=== PATIENT | male | born 1950 | race Caucasian/White ===

== ENCOUNTER 2017-05-18 06:10 | Day surgery (SDC) | payer MEDICARE ==
[~2017-05-18] VITALS: Ht 172.7 cm; Wt 77.3 kg
[2017-05-18] MEDS ORDERED: IOHEXOL 350 MG/ML 100 ML BTL (for Cath Lab) OTHER ONE (06:11)
[2017-05-18] MEDS ORDERED: NS 1000P @30 MLS/HR (KVO) IV SCH (06:30)
[2017-05-18 06:56] VITALS: BP 137/78; PULSE 89; RESP 18; TEMP 97.9; O2SAT 98
[2017-05-18] MEDS ORDERED: NITR0.4S SL (07:01)
[2017-05-18] MEDS ORDERED: METF1000 PO (07:01)
[2017-05-18] MEDS ORDERED: KRIL300C3 (07:01)
[2017-05-18] MEDS ORDERED: LISI10TA3 PO (07:01)
[2017-05-18] MEDS ORDERED: LOVA40TA PO (07:01)
[2017-05-18] MEDS ORDERED: FEXO180T PO (07:01)
[2017-05-18] MEDS ORDERED: GLIP10TA6 PO (07:01)
[2017-05-18] MEDS ORDERED: VITA1000 PO (07:01)
[2017-05-18] MEDS ORDERED: ASPI-516 CHEW (07:01)
[2017-05-18] MEDS ORDERED: EMPA1TAB5 PO (07:01)
[2017-05-18] MEDS ORDERED: MIDAZOLAM HCL 2 MG/2 ML VIAL ONE (08:23)
[2017-05-18] MEDS ORDERED: HEPARIN-NS/PF INJ 1,000 ML ONE (08:23)
--- NOTE | 2017-05-18 09:03 | CATHPROC ---
mii HIS Report Study Information Study Number Admission Scheduled Start Study Start [id number] May 18 2017 6:10AM 05/18/2017 May 18 2017 7:57AM Left Hand Service Cardiac Catheterization Admit Source Facility Department Other [facility] - Audio Tape Librarian Physician and Clinical Staff Initial Albert Irby Fiber Optic Assembly WorkerKatlyn Hager BSN Fiber Optic Assembly Worker Farzaneh Duran,RN Other cathlab, cathlab Recorder Galen Patterson RCIS(BS) Scrub Cristal Flood RT(R) Procedures Performed Procedure Location (Site) Vessel Name Angiogram LV LV Ventricle Coronary Angiograms LCA Left Coronary Coronary Angiograms RCA Right Coronary L Heart Cath Equipment Time Division Human Resources Manager Description Size Mfg Part Number Used/Scraped TRANSDUCER, TRCollegium PharmaceuticalAVE [id number] 07:58 BARRIOS WADDELL * Used W/STOCKCOCK *[id number] *[id number] *[id number] *[id number] 07:58 [employer] PACK, CCL CUSTOM * Used *[id number] 07:58 [employer] SUPPORT, ARTERIAL ADULT 85074 *[id number] Used [id number] 07:58 [employer]oc[employer]ics PACER PEN, SKIN DUAL W/ RULER * Used *[id number] SHEATH, FR6 RADIAL PRELUDE 07:58 [employer] FR 6 [id number] Used EASE 11CM [id number] 07:58 [employer] WIRE, EXCHANGE 260CM 3MMJ 260CM Used *[id number] 07:58 [employer]COMED OMNIPAQUE, 350 MG, 150ML 150ML [id number] Used 08:50 [employer]COMED OMNIPAQUE, 350 MG, 50ML 50ML [id number] Used [id number] 07:58 [employer] Skin Care BLANKET,WARM AIR CCL * Used *[id number] History: Current Medications Medication Dosage/Unit Route Frequency Last Date/Time Taken Statins (any) ASA History: Allergies Allergy Reaction No Known Allergies History: Risk Factors Family History of Hypertension Dyslipidemia Previous KS Previous Heart Failure Premature CAD Yes Yes Yes No No Prior Valve Prior PCI Prior CABG Surgery No No No Cerebrovascular Peripheral Artery Chronic Lung On Dialysis Diabetes Diabetes Therapy Disease Disease Disease Yes No No No Yes Oral History: Symptoms/Diagnosis Selection Items Chest pain History: Stress Tests Stress or Imaging Studies Performed Yes Standard Exercise Stress Test No Stress Echo No Stress Test SPECT Stress Test SPECT Result Stress Test SPECT Ischemia Risk/Extent Yes Positive High Stress Test CMR No Cardiac CTA Coronary Calcium Score No No History: Other Current Smoker Method Quit Packs a Day Years Used Pack Years No Cigarettes 25 Years Ago 1 20 20 Labs Hgb (g/dl) Hct (%) WBC (l/cumm) Platelets (thousands) 11.60-17.00 35.00-51.00 4.00-11.00 150.00-450.00 14.7 44.1 7.3 188 Glucose (mg/dl) BUN (mg/dl) Creatinine (mg/dl) BUN:Creatinine (1:x) 74.00-106.00 7.00-18.00 0.50-1.30 10.00-20.00 146 8 1.0 8 Na (meq/l) K (meq/l) 136.00-145.00 3.50-5.10 143 3.9 INR (PTT:PT) 0.90-1.10 1 CPK-MB (ng/ML) 0.50-3.60 Not Drawn Medication Medication Total Dose (Bolus/Oral) Medication Total Dosage/Unit 1% XYLOCAINE 20 mL VERSED 2 mg Medications (Bolus/Oral) Medication Time Given Dosage/Unit Administered By Reason VERSED 05/18/2017 8:35:33 AM 2 mg Farzaneh Duran 2 mg VERSED given in lab by Farzaneh Duran RN in Left Hand via Peripheral IV. Ordered by Albert Finn. 1% XYLOCAINE 05/18/2017 8:36:37 AM 20 mL Farzaneh Duran 20 mL 1% XYLOCAINE given in lab by Farzaneh Duran RN in Right Groin via Subcutaneous. Ordered by Albert Manning. Medication (Drip) Medication Time Given Dosage/Unit Concentration/Unit Diluent (ml) Solution IV Solutions 05/18/2017 8:17:44 AM 0 mL (IV) 500 NaCl .9 Patient arrived on IV Solutions given by neftali lindsay in Left Hand via Peripheral IV. Pump/Drip F low = 20 ml/hr using NaCl .9. Ordered by Albert Finn. Initial Case Assessment Cardiovascular HR Rhythm NIBP Chest Pain 83 nsr 128/78 0 Edema Present Skin color Skin None Normal Warm Dry Circulatory - Right Pulses Dorsalis Pedis Femoral 1 2 Scale (0,1,2,3,4,d) Circulatory - Left Pulses Dorsalis Pedis Femoral d 2 Scale (0,1,2,3,4,d) Neurological State Oriented to time-place- Alert Moves all extremities person Respiration - General Respiration Rate SpO2 (%) (B/min) 16 97 Final Case Assessment Cardiovascular HR Rhythm NIBP Chest Pain 82 nsr 115/67 0 Edema Present Skin color Skin None Normal Warm Dry Circulatory - Right Pulses Dorsalis Pedis Femoral 1 2 Scale (0,1,2,3,4,d) Circulatory - Left Pulses Dorsalis Pedis Femoral d 2 Scale (0,1,2,3,4,d) Neurological State Oriented to time-place- Alert Moves all extremities person Respiration - General Respiration Rate SpO2 (%) (B/min) 16 97 Chronological Log Time Study Chronological Log 8:16:39 Patient arrived via Bed. 8:16:43 Patient Name, D.O.B, / Armband Verified By R.N. 8:16:49 Consent signed by the physician and the patient and verified by the Audio Tape Librarian staff. 8:16:52 Pre-op and post- op instructions given; patient acknowledges understanding of instructions. 8:16:55 Verbal Stimulation=2 Physical Stimulation=2 Airway=2 Respiration=2 TOTAL=8. (0=absent, 1=li mited, 2=present) 8:17:02 Presedation assessment performed by Audio Tape Librarian RN. 8:17:06 Immediate Presedation assesment performed by physician. 8:17:17 Patient has been NPO for More than 6Hrs. 8:17:21 Skin Breakdown- none per patient 8:17:23 Patient Warmer Placed on the Table. 8:17:26 Severino Prominences Protected 8:17:38 A # 20 IV was noted in the Hand (left). Grade = 0 Patient arrived on IV Solutions given by cathlab, cathlab in Left Hand via Peripheral IV. Pump/ Drip Flow = 20 ml/hr 8:17:44 using NaCl .9. Ordered by Albert Finn. 8:17:48 History and physical on the chart or being dictated. Vitals capture started with the following parameters, Patient=Adult, Interval=5 min, Initial Pr wxfglp=213 mmHg, 8:18:30 Deflation Rate=5 mmHg, Cuff placed on Left Arm 8:19:11 HR=92 bpm, YTFC=975/83 mmhg, SpO2=96.0 %, Resp=14 B/min, Pain=0, Rock=10, Shine=2 8:24:06 HR=86 bpm, CMUS=144/78 mmhg, SpO2=96.0 %, Resp=10 B/min, Pain=0, Rock=10, Shine=2 8:26:08 Reference ECG taken Assessment: Initial Case, HR=83 BPM, Rhythm=nsr, SUZY=330/78 mmhg, Chest Pain=0, Edema=None, Col or=Normal, Skin = Warm, Dry Right Pulses: William Ped=1, Femoral=2 8:26:13 Left Pulses: William Ped=d, Femoral=2 Neurological: State=Alert, Ox3, MANJARREZ Respiration: Resp=16 B/min, SpO2=97 % 8:28:49 Bilateral groins prepped with 2% chlorhexidine, and draped after a 3 minute waiting time. 8:29:05 HR=86 bpm, IDRY=835/75 mmhg, SpO2=96.0 %, Resp=17 B/min, Pain=0, Rock=10, Sihne=2 8:30:39 MD arrived. 8:34:06 HR=83 bpm, KESG=533/73 mmhg, SpO2=95.0 %, Resp=16 B/min, Pain=0, Rock=10, Shine=2 8:35:06 Pressure channel 1 zeroed. 8:35:33 2 mg VERSED given in lab by Farzaneh Duran, RN in Left Hand via Peripheral IV. Ordered by Albert Song. Time Out. Correct patient, correct procedure, correct physician, power injector not loaded with contrast with surgical 8:36:05 team present. Time Out Concurred by MD and individual staff in procedure. 8:36:32 Case Start 20 mL 1% XYLOCAINE given in lab by Farzaneh Duran, RN in Right Groin via Subcutaneous. Ordered by Aakash 8:36:37 Albert. 8:39:07 HR=84 bpm, ACCJ=623/68 mmhg, SpO2=93.0 %, Resp=16 B/min, Pain=0, Rock=10, Shine=2 8:40:55 Access site was Right Femoral Artery. A SHEATH, FR6 RADIAL PRELUDE EASE 11CM FR 6 was advanced into the Fem Art (right) using the Perc utaneous 8:41:07 technique. A JL 4.0 INFINITI CATHETER FR 6 was advanced over a wire. OMNIPAQUE, 350 MG, 150ML 150ML was use d for 8:41:29 injections. Recorded Pressure: Ao, HR=83, Condition=Condition 1 8:43:18 (Aorta) Ao 107/59/79 8:43:30 The LCA was injected and visualized at various angles. OMNIPAQUE, 350 MG, 150ML 150ML used. 8:44:06 HR=77 bpm, PQUR=741/64 mmhg, SpO2=94.0 %, Resp=16 B/min, Pain=0, Rock=10, Shine=2 8:46:18 Catheter was removed A JR 4.0 INFINITI CATHETER FR 6 was advanced over a wire. OMNIPAQUE, 350 MG, 150ML 150ML was use d for 8:46:23 injections. 8:47:18 The RCA was injected and visualized at various angles. OMNIPAQUE, 350 MG, 150ML 150ML used. 8:48:00 Catheter was removed A PIGTAIL STR INFINITI CATHETER FR 6 was advanced over a wire. OMNIPAQUE, 350 MG, 150ML 150ML wa s used for 8:48:18 injections. 8:49:05 HR=80 bpm, NZYN=502/68 mmhg, SpO2=94.0 %, Resp=18 B/min, Pain=0, Rock=10, Shine=2 Recorded Pressure: LV, HR=82, Condition=Condition 1 8:49:27 (Left Ventricle) LV 106/7/20 8:49:43 The LV was injected at 12 cc/sec for a total of 30. OMNIPAQUE, 350 MG, 50ML 50ML used. Recorded Pressure: LV, Ao, HR=80, Condition=Condition 1 8:50:42 (Left Ventricle) LV 103/8/23, (Aorta) Ao 99/51/72 8:51:02 Catheter was removed 8:53:37 Case End 8:54:04 HR=84 bpm, AUQL=592/67 mmhg, SpO2=95.0 %, Resp=18 B/min, Pain=0, Rock=10, Shine=2 Assessment: Final Case, HR=82 BPM, Rhythm=nsr, DDRB=067/67 mmhg, Chest Pain=0, Edema=None, Col or=Normal, Skin = Warm, Dry Right Pulses: William Ped=1, Femoral=2 8:55:19 Left Pulses: William Ped=d, Femoral=2 Neurological: State=Alert, Ox3, MANJARREZ Respiration: Resp=16 B/min, SpO2=97 % 8:55:48 Catheter(s) removed without difficulty 8:55:54 Sheath(s) left in place, will be removed in Holding Area 8:55:57 Sterile dressing applied to site 8:56:04 No case complications noted. 8:56:08 Cine recording checked. 8:56:11 Bedside Report will be given. 8:56:19 Verbal Stimulation=2 Physical Stimulation=2 Airway=2 Respiration=2 TOTAL=8. (0=absent, 1=l imited, 2=present) 8:56:29 A Left Heart Cath was performed. 8:56:38 Vitals capture stopped. 8:57:40 [facility] - Contrast Media Used In Study Contrast Total Opened (mL) Total Used (mL) Total Wasted (mL) Omnipaque 65 65 0 End Study - Maximum Contrast Load Max Contrast Load (mL) 175.5 End Study - Radiation Exposure Fluoro Time (minutes) 1.4 End Study - Patient Disposition Complications Transferred To Interventional Outcome No Audio Tape Librarian Holding No attempt made
[2017-05-18] MEDS ORDERED: ATROPINE SULFATE 1 MG/ML VIAL IV PUSH PRN (09:15)
[2017-05-18] MEDS ORDERED: LIDOCAINE HCL 1% 50 ML VIAL INFIL PRN (09:15)
[2017-05-18] MEDS ORDERED: MISC INFORMATION XX ONE (09:15)
[2017-05-18] MEDS ORDERED: ONDANSETRON HCL 4 MG/2 ML VIAL IV PUSH PRN (09:15)
[2017-05-18] MEDS ORDERED: LORazepam 2 MG/ML VIAL IV PUSH PRN (09:15)
[2017-05-18] MEDS ORDERED: SODIUM CHLOR 0.9% 250 ML INJ 250 ML IV PRN (09:15)
[2017-05-18] MEDS ORDERED: BACITRACIN OINT 0.9 GM PKT TOP ONE (09:15)
--- NOTE | 2017-05-18 09:49 | MA ---
cc: ALBERT FINN MD DATE: 05/18/2017 PROCEDURE: The patient was prepped and draped usual fashion. A 6 sheath was inserted percutaneously in the right femoral artery. Coronary angiography was done with Eris preformed catheters. Left ventriculography was done in right anterior oblique position with pigtail catheter. RESULTS Aortic pressure was 103/50. Left ventricular end-diastolic pressure was 8. CORONARY ANGIOGRAPHY The left main coronary was normal. Anterior descending artery demonstrated a complex stenosis just proximal to the takeoff of the first diagonal branch. This was somewhat hazy in appearance, suggesting the possibility of intraluminal thrombus, appeared to compromise the lumen by approximately 75% and also involved the lumen of the first diagonal branch as well. Distal portion of the artery was free from disease. The first diagonal itself had a 90% stenosis in its midportion. A small second diagonal branch was free from disease. Left circumflex artery arose from left main, gave off a ramus intermedius branch with a high-grade stenosis noted in the midportion of approximately 90%. Circumflex itself then demonstrated a 75% stenosis. The distal portion of the artery trifurcated into three obtuse marginal branches. The third obtuse marginal branch demonstrated a 90% lesion at its takeoff from the circumflex. The right coronary was nondominant. A ostial stenosis was present of approximately 50-60%. Left ventriculography demonstrated a mildly dilated left ventricle. There is anteroapical hypokinesis with overall ejection fraction estimated at 35%. No mitral regurgitation was present. CONCLUSIONS The patient demonstrates coronary disease; it is rather widespread. He would appear to be a candidate for bypass grafting to the distal LAD, circumflex, distal obtuse marginal first diagonal and ramus intermedius branch. Albert Finn MD DLW/DT /8:51 AM /9:06 AM
--- NOTE | 2017-05-18 10:57 | PD.CAR.PN ---
CVT Progress Note Subjective/Hospital Course: sts data discussed with pt RISK SCORES About the STS Risk Calculator Procedure: CAB Only Risk of Mortality: 0.874% Morbidity or Mortality: 9.718% Long Length of Stay: 3.43% Short Length of Stay: 52.458% Permanent Stroke: 0.957% Prolonged Ventilation: 5.787% DSW Infection: 0.346% Renal Failure: 1.896% Reoperation: 3.967% Objective: Vital Signs Date Time Temp Pulse Resp B/P (MAP) Pulse Ox O2 Delivery O2 Flow Rate FiO2 05/18/17 09:44 97 Room Air 05/18/17 06:56 97.9 89 18 137/78 (97) 98 Gloria Zhang May 18, 2017 10:57
[2017-05-18 11:44] LABS: AUTOMATED NEUTROPHIL # 4.9 TH/MM3 (1.8-7.7); BASOPHIL # 0.1 TH/MM3 (0-0.2); BASOPHIL % 0.8 % (0.0-2.0); EOSINOPHIL # 0.1 TH/MM3 (0-0.4); EOSINOPHIL % 1.1 % (0.0-4.0); HEMATOCRIT 42.9 % (39.0-51.0); LYMPH % 28.6 % (9.0-44.0); LYMPHOCYTE # 2.3 TH/MM3 (1.0-4.8); MEAN CELL VOLUME 95.8 FL (80.0-100.0); MEAN CORPUSCULAR HEMOGLOBIN 33.5 PG (27.0-34.0); MEAN PLATELET VOLUME 10.4 FL (7.0-11.0); MONOCYTE # 0.6 TH/MM3 (0-0.9); NEUT % 61.5 % (16.0-70.0); PLATELET COUNT 188 TH/MM3 (150-450); RED BLOOD COUNT 4.48 MIL/MM3 (4.50-5.90); RED CELL DISTRIBUTION WIDTH 12.8 % (11.6-17.2)
[2017-05-18 11:53] LABS: PROTHROMBIN TIME - PATIENT 10.6 SEC (9.8-11.6)
[2017-05-18 11:56] LABS: ALBUMIN 3.4 GM/DL (3.4-5.0); AST (GOT) 24 U/L (15-37); BICARBONATE 23.6 MEQ/L (21.0-32.0); BLOOD UREA NITROGEN 8 MG/DL (7-18); CALCIUM 8.3 MG/DL (8.5-10.1); CHLORIDE 105 MEQ/L (98-107); CREATININE 0.81 MG/DL (0.60-1.30); GLOMERULAR FILTRATION RATE 94 ML/MIN (>89); GLUCOSE,RANDOM 205 MG/DL (74-106); SODIUM (NA) 139 MEQ/L (136-145)
[2017-05-18 11:57] LABS: ALT (GPT) 42 U/L (12-78)
[2017-05-18 11:59] LABS: ALKALINE PHOSPHATASE 70 U/L (45-117); TOTAL BILIRUBIN ADULT 0.4 MG/DL (0.2-1.0); TOTAL PROTEIN 6.9 GM/DL (6.4-8.2)
--- NOTE | 2017-05-18 12:30 | RADRPT ---
EXAM DATE/TIME: 05/18/2017 11:11 [facility] COMPARISON: No previous studies available for comparison. INDICATIONS : Preop cardiac surgery. MEDICAL HISTORY : Hypertension. Diabetes mellitus type 2. Coronary artery disease. SURGICAL HISTORY : Cardiac cath. ENCOUNTER: Initial ACUITY: 1 day PAIN SCORE: 0/10 LOCATION: Bilateral neck PEAK SYSTOLIC VELOCITIES (cm/sec): ICA/CCA RATIO: Right: 1.2 Left: 0.8 ICA: Right: 98 Left: 94 CCA: Right: 81 Left: 112 ECA: Right: 182 Left: 189 VERTEBRAL: Right: 65 antegrade Left: 19 antegrade Elevated flow velocities and ICA/CCA ratios have been found to correlate with increased degrees of vessel stenosis, calculated as percentage of diameter relative to a normal segment of distal ICA/CCA FINDINGS: RIGHT CAROTID: There is mild to moderate atherosclerotic plaquing at the carotid bifurcation. No significant stenosi s is visualized. The waveforms are within normal limits. LEFT CAROTID: There is moderate atherosclerotic plaquing at the carotid bifurcation. No significant stenosis is vis ualized. The waveforms are within normal limits. VERTEBRAL ARTERIES: Antegrade flow is seen in both vertebral arteries. MISCELLANEOUS: None. CONCLUSION: 1. #1. Mild to moderate calcified atherosclerotic plaquing at the right carotid bifurcation. Moderate c alcified plaquing at the left carotid bifurcation. #2. No focal high grade or hemodynamically significant stenosis. Héctor Plascencia MD on May 18, 2017 at 12:26 Board Certified Radiologist. This report was verified electronically.
--- NOTE | 2017-05-18 12:31 | RADRPT ---
EXAM DATE/TIME: 05/18/2017 11:23 [facility] COMPARISON: No previous studies available for comparison. INDICATIONS : Preop cardiac surgery. MEDICAL HISTORY : Hypertension. Diabetes mellitus type 2. Coronary artery disease. SURGICAL HISTORY : Cardiac cath. ENCOUNTER: Initial ACUITY: 1 day PAIN SCORE: 0/10 LOCATION: Bilateral leg. TECHNIQUE: Venous ultrasound of the left and right leg was performed from the inguinal ligament to the proximal calf. Real-time, color Doppler and spectral tracing, compression and augmentation techniques were us ed. FINDINGS: RIGHT LEG: There is normal compressibility of the deep venous system from the inguinal region to the proximal ca lf. No echogenic clot is seen in the lumen of the common femoral, femoral, popliteal, and posterior tibial veins. There is a normal response of the venous system to proximal and distal augmentation an d respiration. LEFT LEG: There is normal compressibility of the deep venous system from the inguinal region to the proximal ca lf. No echogenic clot is seen in the lumen of the common femoral, femoral, popliteal, and posterior tibial veins. There is a normal response of the venous system to proximal and distal augmentation an d respiration. CONCLUSION: Negative exam with no evidence of deep venous thrombosis. Tod Rojas MD on May 18, 2017 at 12:29 Board Certified Radiologist. This report was verified electronically.
--- NOTE | 2017-05-18 12:31 | RADRPT ---
EXAM DATE/TIME: 05/18/2017 11:35 [facility] COMPARISON: No previous studies available for comparison. INDICATIONS : Preop cardiac surgery. MEDICAL HISTORY : Hypertension. Diabetes mellitus type 2. Coronary artery disease. SURGICAL HISTORY : Cardiac cath. ENCOUNTER: Initial ACUITY: 1 day PAIN SCORE: 0/10 LOCATION: Bilateral leg. GREATER SAPHENOUS VEIN THIGH: PROXIMAL: Right 4 mm Left 6 mm MID: Right 2 mm Left 4 mm DISTAL: Right 2 mm Left 3 mm CALF: PROXIMAL: Right 1 mm Left 2 mm MID: Right 2 mm Left 1 mm DISTAL: Right 1 mm Left 1 mm FINDINGS: The venous system of the lower extremities are patent by color Doppler imaging. Measurements of the leg veins (in mm) are listed above. CONCLUSION: Venous mapping study as described. Tod Rojas MD on May 18, 2017 at 12:30 Board Certified Radiologist. This report was verified electronically.
--- NOTE | 2017-05-18 12:53 | MB ---
cc: JO ANN DUVALL DATE OF CONSULTATION: 05/18/2017 DATE OF : 1950 REASON FOR CONSULTATION: 67-year-old patient of Dr. Ridley and Dr. Albert Finn who started having some chest tightness since January more noticeable with exertion. He normally walks five miles a day and then the it would up walking less than a mile and half. He had to stop periodically with mild chest tightness with associated shortness of breath. No diaphoresis. No nausea or vomiting. He underwent exercise stress testing at [facility] which showed 2-[address] depression inferior leads and some lateral leads. Some ST elevation in V1. The ejection fraction on the stress test showed 32%. He had a 2-D echocardiogram which showed some trace mitral regurgitation, trace tricuspid regurgitation. The EF was incorrect. The patient underwent cardiac cath today by Dr. Finn which showed an ejection fraction of 35% proximal a LAD 70% stenosis. The diagonal 90% stenosis, circ was 75%. The OM 90%. The ramus 90%. We were consulted to evaluate for coronary artery bypass grafting. PAST MEDICAL HISTORY: The patient's past medical history on include diabetes mellitus type 2 Essential hypertension. Lhlw-mg-gkhrlcg he wears hearing aids Chronic kidney disease stage II GFR normally 60-89 Diabetic neuropathy Hyperlipidemia Chronic low back pain Prior tobacco abuse. PAST SURGICAL HISTORY: Surgeries include some oral surgery a colonoscopy. ALLERGIES No known allergies MEDICATIONS Home medications include 1. Marce. 2. Nitro p.r.n. 3. Glyicexambia. 4. Lisinopril 10 p.o. daily, 5. Aspirin 81 daily 6. krill oil 7. lovastatin 8. Glipizide 10 mg b.i.d. 9. Vitamin D 10. Metformin 1000 b.i.d. FAMILY HISTORY: Family history of coronary artery disease. Family history of colon cancer history of prostate cancer. REVIEW OF SYSTEMS IN GENERAL: No night sweats, fever, heat and cold intolerance. SKIN: No psoriasis, itching or hives. HEENT: No blurred vision, positive for hearing loss. He does wear bilateral hearing aids. He wears glasses. He has also full dentures on the top partial dentures on the bottom. RESPIRATORY: Positive for shortness of breath with exertion chest. CARDIOVASCULAR SYSTEM: As above in HPI. GASTROINTESTINAL: No diarrhea, vomiting. GENITOURINARY: No burning frequency, urgency CENTRAL NERVOUS SYSTEM: No history of TIA, CVA, seizure disorder. ENDOCRINOLOGY: Positive for diabetes. PHYSICAL EXAMINATION: VITAL SIGNS: On exam blood pressure 130/70, heart rate of 80, temperature max 97.9, O2 sat 97 on room air. IN GENERAL: Patient is awake, alert in no acute distress. HEAD, EYES, EARS, NOSE, AND THROAT: Head is normocephalic, atraumatic. Pupils equal and reactive. Oral mucosa pink, moist. NECK: Supple. No JVD. HEART: Heart sounds S1-S2 regular rate and rhythm. No rubs, murmurs, gallops. LUNGS: Clear to auscultation. No wheezes, rales or rhonchi. ABDOMEN: Soft, nontender. No masses or organomegaly. EXTREMITIES: No cyanosis, clubbing or edema. LABORATORY FINDINGS: Lab work shows sodium of 143, potassium 3.9, BUN 80 with a creatinine of one, hemoglobin 14, hematocrit of 44, white cell count seven, platelet count 188. INR was 1.0. RADIOLOGIC: Chest x-ray just showed some, scoliosis, some calcified granuloma. IMPRESSION This is a very pleasant 67-year-old male with coronary artery disease, multivessel disease. The cardiac films have been evaluated by Dr. Jo Ann Duvall procedures, alternatives and risks have been discussed with the patient and his . He is agreeable to proceed. The date for surgery is planned for May 31 for coronary artery bypass grafting x4 with endoscopic harvesting. DICTATED BY: DENNYS SolomonP-Slava MD LUCAS Whitlock/ /11:03 AM /2:17 PM
--- NOTE | 2017-05-18 15:31 | RADRPT ---
EXAM DATE/TIME: 05/18/2017 15:07 [facility] COMPARISON: No previous studies available for comparison. INDICATIONS : Evaluate for pneumonia, pneumothorax, or communicable diesease. MEDICAL HISTORY : Hypertension. Diabetes mellitus type 2. Coronary artery disease. SURGICAL HISTORY : Cardiac cath. ENCOUNTER: Initial ACUITY: 1 day PAIN SCORE: 0/10 LOCATION: Bilateral chest FINDINGS: PA and lateral views of the chest demonstrate the lungs to be symmetrically aerated without evidence of mass, infiltrate or effusion. The cardiomediastinal contours are unremarkable. Osseous structure s are intact. CONCLUSION: No acute disease. Austin Sinha MD on May 18, 2017 at 15:29 Board Certified Radiologist. This report was verified electronically.
[2017-05-18 16:23] LABS: BILIRUBIN, URINE NEG (NEG); BLOOD, URINE NEG (NEG); GLUCOSE,URINE 1000 mg/dL (NEG); KETONE, URINE TRACE mg/dL (NEG); NITRITE,URINE NEG (NEG); URINE COLOR LIGHT-YELLOW (YELLW/STRAW); URINE LEUKOCYTE ESTERASE NEG (NEG)
[2017-05-18 16:59] LABS: HEMOGLOBIN A1C 7.1 % (4.3-6.0)
--- NOTE | 2017-05-23 09:26 | RSPPFT ---
DATE OF PROCEDURE: 05/18/17 COMMENTS: The forced vital capacity shows a small reduction. The FEV1 is reduced with a normal FEV1/FVC ratio. The FEF 25-75 shows a small reduction. IMPRESSION: This is compatible with mild restrictive lung disease with a small airways obstructive component.
== END 2017-05-18 16:14 | disposition home or self-care (01) ==
LOC: HCAT 06:10 → HDIC 06:10 → HCAT 16:14
PROVIDERS: ATTEND Internal Medicine
DX: I25.10 Atherosclerotic heart disease of native coronary artery without angina pectoris (principal); N18.2 Chronic kidney disease, stage 2 (mild); I12.9 Hypertensive chronic kidney disease with stage 1 through stage 4 chronic kidney disease, or unspecified chronic kidney disease; E11.40 Type 2 diabetes mellitus with diabetic neuropathy, unspecified; E78.5 Hyperlipidemia, unspecified; M54.5 Low back pain; G89.29 Other chronic pain; Z79.84 Long term (current) use of oral hypoglycemic drugs; Z79.82 Long term (current) use of aspirin; Z01.818 Encounter for other preprocedural examination
CPT/HCPCS: 71020; 80053; 81001; 83036; 85025; 85610; 86850; 86900; 86901; 87641; 93458; 93880; 93970; 93998; 94010; 99152; 99153; C1769; C1893; J1644; J2250; Q9967

== ENCOUNTER 2017-06-01 05:34 | Inpatient (IN) | payer MEDICARE ==
[2017-06-01] VITALS (10 sets, daily range): BP systolic 107–134; BP diastolic 49–79; PULSE 77–94; RESP 11–16; TEMP 97.6–98.9; O2SAT 94–98
[~2017-06-01] VITALS: Ht 170.2 cm; Wt 78.3 kg
[~2017-06-01 05:34] MED LIST: ASPI-516 CHEW; EMPA1TAB5 PO; FEXO180T PO; GLIP10TA6 PO; KRIL300C3; LISI10TA3 PO; LOVA40TA PO; METF1000 PO; NITR0.4S SL; VITA1000 PO
[2017-06-01] MEDS ORDERED: CHLORHEXIDINE GLUCONATE 4% SOLN 120 ML BTL TOPICAL SCH (06:15)
[2017-06-01] MEDS ORDERED: LACTATED RINGER'S 1000 ML IV PRN (06:15)
[2017-06-01] MEDS ORDERED: CEFAZOLIN 500 MG in NS IRR BTL 500 ML IRRIGATION SCH (06:15)
[2017-06-01] MEDS ORDERED: SODIUM CHLORID 0.9% 500 ML IV PRN (06:15)
[2017-06-01] MEDS ORDERED: ceFAZolin 2 GM PREMIX 50 ML IV SCH (06:15)
[2017-06-01] MEDS ORDERED: DEXTROSE 50% IN WATER 50 ML VIAL(D50) IV PUSH PRN ×2 (06:15→12:00)
[2017-06-01] MEDS ORDERED: POVIDONE IODINE 5% (ANTISEPSIS KIT) 4 APPLICATIONS EACH NARE PRN (06:15)
[2017-06-01] MEDS ORDERED: METOPROLOL TARTRATE 25 MG TAB PO SCH (06:15)
[2017-06-01] MEDS ORDERED: CHLORHEXIDINE GLUCONATE 2 % 1 PACK (2 CLOTHS) TOPICAL PRN (06:15)
[2017-06-01] MEDS ORDERED: SODIUM CHLORIDE 0.9% FLUSH 10 ML FLUSH IV FLUSH PRN ×3 (06:15→12:00)
[2017-06-01] MEDS ORDERED: INSULIN REGULAR 100 UNITS in NS 100 ML IV PRN (06:15)
[2017-06-01] MEDS ORDERED: HEPARIN SODIUM - SQ 10,000 UNITS/ML VIAL ONE ×2 (06:27)
[2017-06-01] MEDS ORDERED: methylPREDNISolone SOD SUCC 125 MG/2 ML VIAL ONE (06:29)
[2017-06-01] MEDS ORDERED: ceFAZolin 2 GM PREMIX 50 ML ONE (06:29)
[2017-06-01] MEDS ORDERED: VANCOMYCIN HCL 1000 MG VIAL ONE (06:29)
[2017-06-01] MEDS ORDERED: CARDIOPLEGIC IRR 2,000 ML ONE (06:53)
[2017-06-01] MEDS ORDERED: ALBUMIN 25% INJ 50 ML IV ONE (06:53)
[2017-06-01] MEDS ORDERED: HEPARIN SODIUM - IV 10,000 UNITS/10 ML VIAL ONE (06:54)
[2017-06-01] MEDS ORDERED: POTASSIUM CHLORIDE 40 MEQ/20 ML VIAL ONE (06:54)
[2017-06-01] MEDS ORDERED: POTASSIUM CHLORIDE 20 MEQ/10 ML VIAL ONE (06:55)
[2017-06-01] MEDS ORDERED: SODIUM BICARBONATE 8.4% INJ 50 ML ONE (06:55)
[2017-06-01] MEDS ORDERED: MANNITOL INJ 100 ML ONE (06:55)
[2017-06-01] MEDS ORDERED: CALCIUM CHLORIDE 10% SOLN 1 GRAM/10 ML SYR ONE (06:56)
[2017-06-01] MEDS: PAPAVERINE 60 MG-NITROGLYCERIN 100 MCG-DILTIAZEM 100 MG in NS 100 ML IRRIGATION SCH ×8 (09:06→11:56)
[2017-06-01] MEDS ORDERED: DEXMEDETOMIDINE HCL 200 MCG/2 ML VIAL ONE (11:51)
[2017-06-01] MEDS ORDERED: LACTATED RINGER'S 1000 ML INJ 500 ML IV PRN (11:57)
[2017-06-01] MEDS ORDERED: RESP: ALBUTEROL 2.5 MG/IPRATROPIUM 0.5 MG NEB (PRN) NEB (12:00)
[2017-06-01] MEDS ORDERED: LIDOCAINE HCL 1% PF 5 ML SYRINGE OTHER ONE (12:00)
[2017-06-01] MEDS ORDERED: ceFAZolin INJ 1,000 MG VIAL IV ONE (12:00)
[2017-06-01] MEDS ORDERED: ONDANSETRON HCL 4 MG/2 ML VIAL IV PUSH PRN (12:00)
[2017-06-01] MEDS ORDERED: RESP: RACEPINEPHRINE 2.25% 0.5 ML NEB NEB PRN (12:00)
[2017-06-01] MEDS ORDERED: METOPROLOL TARTRATE 5 MG/5 ML VIAL IV PUSH PRN (12:00)
[2017-06-01] MEDS ORDERED: CALCIUM CHLORIDE INJ 1 GM in SODIUM CHLORIDE 0.9% INJ 100 ML IV PRN (12:00)
[2017-06-01] MEDS ORDERED: POTASSIUM CHLORIDE 20 MEQ CONTROLLED RELEASE TAB PO PRN ×2 (12:00)
[2017-06-01] MEDS ORDERED: ACETAMINOPHEN 650 MG SUPP RECTAL PRN (12:00)
[2017-06-01] MEDS ORDERED: VECURONIUM BROMIDE 20 MG VIAL IV ONE (12:00)
[2017-06-01] MEDS ORDERED: ACETAMINOPHEN 325 MG TAB PO PRN (12:00)
[2017-06-01] MEDS ORDERED: ROCURONIUM INJ 50 MG/5 ML SYRINGE IV PUSH ONE (12:00)
[2017-06-01] MEDS ORDERED: DEXMEDETOMIDINE INJ 200 MCG in SODIUM CHLORIDE 0.9% INJ 50 ML IV PRN (12:00)
[2017-06-01] MEDS ORDERED: POTASSIUM CHLOR 20 MEQ PREMIX 100 ML IV PRN ×3 (12:00)
[2017-06-01] MEDS ORDERED: hydrALAZINE HCL 20 MG/ML VIAL IV PUSH PRN (12:00)
[2017-06-01] MEDS ORDERED: CALCIUM CHLORIDE 10% 1 GRAM/10 ML VIAL IV PUSH PRN (12:00)
[2017-06-01] MEDS ORDERED: LACTATED RINGER'S 1000 ML INJ 2,000 ML IV ONE (12:00)
[2017-06-01] MEDS ORDERED: SODIUM BICARBONATE 8.4% SOLN 50 MEQ/50 ML VIAL IV PUSH PRN ×2 (12:00)
[2017-06-01] MEDS ORDERED: PHENYLEPH/NS 1000 MCG/10 ML SYR IV ONE (12:00)
[2017-06-01] MEDS ORDERED: ePHEDrine/NS 25 MG/5 ML SYRINGE IV ONE (12:00)
[2017-06-01] MEDS ORDERED: CLEVIDIPINE INJ 50 ML IV PRN (12:00)
[2017-06-01] MEDS ORDERED: ALBUMIN 5% INJ 250 ML IV PRN (12:00)
[2017-06-01] MEDS: METOCLOPRAMIDE HCL 10 MG/2 ML VIAL IV PUSH SCH ×3 (12:00→21:57)
[2017-06-01] MEDS ORDERED: INSULIN REGULAR (IV INFUSION) 100 UNITS in SODIUM CHLORIDE 0.9% INJ 99 ML IV PRN (12:00)
[2017-06-01] MEDS ORDERED: MAGNESIUM SULFATE INJ 2 GM in SODIUM CHLORIDE 0.9% INJ 100 ML IV PRN ×4 (12:00)
[2017-06-01] MEDS ORDERED: KETOROLAC TROMETHAMINE 30 MG/ML (IVP) VIAL IV PUSH PRN (12:00)
--- NOTE | 2017-06-01 12:02 | PD.CAR.PN ---
CVT Progress Note Subjective/Hospital Course: 67-year-old patient of [facility] and Dr. Albert Finn who started having some chest tightness in January 2017 more noticeable with exertion. He normally walks five miles a day and then the it would up walking less than a mile and half. He had to stop periodically with mild chest tightness with associated shortness of breath, he underwent cardiac stress test which was positive , The ejection fraction on the stress test showed 32%. He also had a 2-D echocardiogram which showed some trace mitral regurgitation, trace tricuspid regurgitation. The patient underwent cardiac cath 05/18 Dr. Finn which showed an ejection fraction of 35% proximal a LAD 70% stenosis. The diagonal 90% stenosis, circ was 75%. The OM 90%. The ramus 90%. PAST MEDICAL HISTORY:diabetes mellitus type 2, Essential hypertension, [place], Chronic kidney disease stage II GFR normally 60-89, Diabetic neuropathy, Hyperlipidemia, Chronic low back pain Objective: Vital Signs Date Time Temp Pulse Resp B/P (MAP) Pulse Ox O2 Delivery O2 Flow Rate FiO2 06/01/17 06:40 98.2 83 16 141/78 (99) 97 (1) Coronary artery disease (2) Diabetes mellitus (3) Chronic kidney disease (4) Hyperlipemia (5) Hypertension Gloria Zhang Jun 01, 2017 12:02
--- NOTE | 2017-06-01 12:08 | HHI.FF ---
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 with documented spasm (2) S/P CABG (coronary artery bypass graft) (3) Coronary artery disease (4) Diabetes mellitus (5) Hyperlipemia (6) Hypertension (7) Chronic kidney disease (8) Angina pectoris Home Health Nursing Order: Signs/symptoms of disease process Diabetic education Medication education-adverse effect Wound care and dressing changes Nursing assessment with vital signs Instructions: Heart and Vascular Surgery patients *Special attention to sternal dressing Mandatory frequency Assess and evaluation, 4 days in a row The next week 3X week 2 times a week for 4 weeks 1 time a week for 5 weeks Schedule Heart and Vascular patients for full 60 day certification period Initial visit Review Open Heart Surgery Discharge Instructions (Sternal precautions, Activity, Elastic hose, Incision care, Driving, Incentive spirometry, Smoking, [place], Work and other) Need Betadine to paint incision Medication reconciliation Importance of follow up care/ check on appointments Make calendar record temperature daily When to call [facility] nurse, review instructions, phone list Incentive Spirometry, demonstration Visit 1- Begin discharge instruction for patient family and/ or caregiver using teach back method- Signs and symptoms of infection Disease characteristics Medicines and side effects Foods and nutrition/ appetite Infection control/ hand washing/ hygiene Visit 2- Continue teaching Discharge instructions- include additional information on smoking cessation , sternal dressing (sternal vac) Visit 3- Continue teaching- Cough and deep breathing, incision monitoring. Choose my plate Visit 4- Continue teaching- Discuss limitations Discuss how they are feeling Discuss progress toward goals Remaining visits- continue teaching and monitoring PREVENA Single Use Negative Wound Therapy System Caregiver Instruction Sheet 1. A Prevena dressing system was applied to the chest incision during surgery , to promote wound healing. It works via a suction device (negative pressure wound therapy) to remove low to moderate levels of exudate (drainage) and infectious materials. We recommend that the device stay in place for up to seven days, from day of surgery. 2. Day of Surgery__06/01/17 Day of Removal ___06/08/17 3. The dressing should only be removed by a health health care coordinator. Please arrange removal of device to coincide with Home Health visit and or with Nursing staff at Rehab 4. If skin reddening or irritation of skin occurs, or excessive drainage, please notify the Cardiovascular Surgeons office at [phone]. 5. Light showering is permissible; however the pump should be disconnected and placed in safe location, where it will not get wet. The dressing should not be exposed to direct spray or submerged in water. No bath tub / shower only. Ensure the end of the tubing attached to the dressing is facing down so that water does not enter the top of the tube. 6. To remove Prevena dressing: press purple button to turn off device / remove the suction. Then disconnect the tubing from the pump. The fixation strips should be stretched away from the skin and the dressing lifted at one corner and peeled back until it has been fully removed. 7. After removal, it is ok to shower daily using liquid dial soap and clean wash cloth, rinse and pat dry, and leave incision open to air dry. For any concerns regarding Prevena dressing, and or wounds, please contact Denita Degroot, patient navigator at [phone] or notify the Cardiovascular Surgeons office at [phone]. Incentive spirometry Q1 hr x 10, while awake, also use acapella device hourly whole awake Sternal Breast Bone Precautions: NO pushing or pulling, ( pt must use sternal pillow to support chest with all activities and with coughing ( takes up to 3 months breast bone to heal ) Daily incision care: ok to shower daily, no tub bath. Wash all incisions with liquid dial soap, clean wash cloth to each site, rinse and pat dry. Observe for any signs of infection, such as drainage which is dark yellow, ardon, green or foul smelling. Immediately report to the surgeon any drainage from the chest incision, or legs, and for any abnormal drainage from the chest tube sites. Notify surgeon if any temp >101.5 degrees F. When specialty dressing removed/ or if you do not have one, continue to shower daily as above, then rinse and pat incision dry and paint with betadine daily x 5 days. Allow steri strips to fall off if you have any. Avoid lotions, creams, salves, oils, etc. for the first month Please see attached forms for additional instructions regarding post Open Heart specialty wound vacuum dressings. GABRIEL or Prevena , Dressing to be removed by Nursing staff on __06/08/[address] Duvall patients , please obtain CBC, BMP, PA & Lat CXR in 2 weeks, results to Dr. Duvall ( prescription will be given) ( ) (Tele: [phone]) , F/U appointment: as per MD instructions: PCP in 2 weeks, CV surgeon 2 weeks, [employer] Consultant 3-4 weeks For any questions regarding incisions/ dressing / meds / post op care or above Symptoms, Tuesday 8am-5pm Heart & Vascular Surgery Office ( Dr. Malave & Dr. Duvall), After Hours / Nights (5pm -8am) Weekends and Holidays Please call [facility] Cardiac [facility] Unit (C[facility]) Charge Nurse I have seen patient Mickey Davis on 06/01/17. My clinical findings support the need for the requested home health care services because: Deconditioned w/ increased weakness I certify that my clinical findings support that this patient is homebound because: Post-op weakness Gloria Zhang Jun 01, 2017 12:08
--- NOTE | 2017-06-01 12:12 | PD.OP ---
cc: Jo Ann Duvall MD; Otf Meneses MD; Albert Finn MD Operative Report Date of Surgery: Jun 01, 2017 Preoperative Diagnosis: (1) Angina pectoris (2) Coronary artery disease Postoperative Diagnosis: Procedure: same Anesthesia: Dr. Reynolds Surgeon: Jo Ann Duvall [employer] Operator(s): CATHY Garber Operation and Findings: The risks, benefits, complications, treatment options, and expected outcomes were discussed with the patient. The possibilities of reaction to medication, pulmonary aspiration, perforation of viscus, bleeding, recurrent infection, the need for additional procedures, failure to diagnose a condition, and creating a complication requiring transfusion or operation were discussed with the patient. The patient concurred with the proposed plan, giving informed consent. The site of surgery properly noted/marked. The patient was taken to Operating Room , identified as Mickey Davis and the procedure verified as CABG, EVH , VERNON. A Time Out was held and the above information confirmed. Standard monitoring lines and Barajas catheter were placed. General anesthesia was induced. The patient was prepped and draped in a sterile fashion. A median sternotomy was performed and electrocautery was used to obtain hemostasis. The left internal mammary artery was procured as a pedicle from the 7th rib to the 1st rib in the usual manner. Simultaneously left greater saphenous vein was procured from the left leg using a minimally invasive endoscopic technique. The vein was prepared for anastomosis and the leg wound was irrigated and closed in 2 layers. The pericardium was opened and a pericardial sling was created using interrupted 0 silk sutures. The patient was heparinized for cardiopulmonary bypass and the distal mammary pedicle was instrumented for anastomosis. The heart was instrumented for cardiopulmonary bypass in the usual manner. Antegrade blood cardioplegia was employed. The patient was placed on cardiopulmonary bypass. An aortic cross-clamp was applied and the heart was arrested using cold blood cardioplegia. Antegrade cardioplegia was administered after he each anastomosis. After adequate arrest, the OM3 was opened with a Mentasta blade and found to be a 1.5 millimeter good target. Saphenous vein was approximated to the OM3 artery using a running 7 0 Prolene suture. The graft was measured for length and orientation and the proximal anastomosis was constructed to the ascending aorta using a running 5 0 Prolene suture after creating an aortotomy with a 5 millimeter punch. The 1st circumflex marginal artery was then opened with a Mentasta blade and found to be a 1.5 millimeter good target. The OM1 artery was intramyocardial. Saphenous vein was approximated to the OM1 artery using a running 7 0 Prolene suture. The graft was measured for length and orientation and was suspended from the pericardium. The LAD was intramyocardial. The distal LAD was opened with a Mentasta blade and found to be a 1.5 millimeter good target. The left internal mammary artery was approximated to the LAD using a running 7 0 Prolene suture. The pedicle was attached to the epicardium using interrupted 5 0 silk suture. The patient was systemically rewarmed and received a hotshot dose of warm blood cardioplegia. The aorta was vented and the proximal anastomosis to the OM1 graft was accomplished using a running 5 0 Prolene suture after creating an aortotomy was a 5 millimeter punch. The cross -clamp was removed and all proximal and distal anastomoses were examined for hemostasis. The patient was weaned from cardiopulmonary bypass. Protamine was given. There was no adverse reaction. Decannulation was carried out without incident. Wound was checked for hemostasis which was obtained using electrocautery. A 36 Kazakh mediastinal and 32 Kazakh left pleural chest tubes were placed and secured to the skin with 0 silk suture. The sternum was closed with stainless steel wire. The fascia was closed with 1. PDS. The subcutaneous tissue was closed using a running 2-0 Vicryl suture. The skin was closed with 4- 0 Monocryl. Sterile dressings were placed. At the end of the operation, all sponge, instruments, and needle counts were correct. The patient was transferred to the CVICU in stable condition. Findings: good distal targets. The first diagonal was not grafted as it was intramyocardial and could not be found. LV function improved to ~45% with revascularization. XC: 62 min CPB: 77 min Drains: mediastinal x 1 pleural x 1 Complications: none Disposition: to CVICU in stable condition Jo Ann Duvall MD Jun 01, 2017 12:12
[2017-06-01] MEDS ORDERED: Post-op Orders (for Pharmacy) OTHER ONE (12:49)
[2017-06-01] MEDS ORDERED: MIDAZOLAM HCL 2 MG/2 ML VIAL ONE (13:01)
[2017-06-01] MEDS ORDERED: fentaNYL CITRATE 1000 MCG/20 ML VIAL ONE (13:01)
[2017-06-01] MEDS: AMIODARONE 200 MG TAB PO SCH ×2 (13:37→21:57)
[2017-06-01] MEDS: ACETAMINOPHEN 1000 MG/100 ML 100 ML IV SCH ×2 (14:15→21:57)
--- NOTE | 2017-06-01 14:15 | RADRPT ---
EXAM DATE/TIME: 06/01/2017 13:01 [facility] COMPARISON: CHEST PA & LAT, May 18, 2017, 15:07. INDICATIONS : Post CABG. MEDICAL HISTORY : Hypertension. Diabetes mellitus type 2. Coronary artery disease. SURGICAL HISTORY : Cardiac cath. ENCOUNTER: Initial ACUITY: 1 day PAIN SCORE: Non-responsive. LOCATION: Bilateral chest FINDINGS: ETT at the level of the clavicles. Right IJ introducer tip in the proximal right atrium. A mediastina l drain and left-sided chest tube in place. No significant pneumothorax. Minimal airspace disease at the left lung base consistent with atelectasis. Cardiomediastinal contours are within normal limits. Remainder of the exam is unchanged. CONCLUSION: 1. Expected immediate postoperative features with tubes and lines, as above. 2. No significant pneumothorax. Teddy Hernandez MD on June 01, 2017 at 14:10 Board Certified Radiologist. This report was verified electronically.
[2017-06-01] MEDS: SODIUM CHLORIDE 0.9% FLUSH 10 ML FLUSH IV FLUSH SCH (21:00)
[2017-06-02] VITALS (10 sets, daily range): BP systolic 110–130; BP diastolic 48–69; PULSE 69–92; RESP 14–16; TEMP 97.7–98.7; O2SAT 95–97
[2017-06-02] MEDS: ACETAMINOPHEN 1000 MG/100 ML 100 ML IV SCH ×2 (03:11→08:34)
[2017-06-02 05:09] LABS: HEMATOCRIT 35.3 % (39.0-51.0); MEAN CELL VOLUME 96.1 FL (80.0-100.0); MEAN CORPUSCULAR HEMOGLOBIN 32.7 PG (27.0-34.0); MEAN PLATELET VOLUME 10.7 FL (7.0-11.0); PLATELET COUNT 141 TH/MM3 (150-450); RED BLOOD COUNT 3.67 MIL/MM3 (4.50-5.90); RED CELL DISTRIBUTION WIDTH 13.4 % (11.6-17.2); WHITE BLOOD COUNT 17.3 TH/MM3 (4.0-11.0)
[2017-06-02 05:25] LABS: BICARBONATE 21.3 MEQ/L (21.0-32.0); CALCIUM 7.3 MG/DL (8.5-10.1); CREATININE 0.83 MG/DL (0.60-1.30); MAGNESIUM 2.2 MG/DL (1.5-2.5)
--- NOTE | 2017-06-02 05:30 | RADRPT ---
EXAM DATE/TIME: 06/02/2017 04:44 [facility] COMPARISON: CHEST SINGLE AP, June 01, 2017, 13:01. INDICATIONS : Post-op CABG MEDICAL HISTORY : Hypertension. Diabetes mellitus type 2. Coronary artery disease SURGICAL HISTORY : Cardiac cath ENCOUNTER: Subsequent ACUITY: 2 days PAIN SCORE: 0/10 LOCATION: Bilateral chest FINDINGS: Examination of the chest demonstrates postoperative findings status post median sternotomy. Support l rochelle and tubes are in satisfactory position. The endotracheal tube has been removed. There is no evid ence of pneumothorax. CONCLUSION: 1. Postsurgical changes as above. There is no evidence of pneumothorax. Albert Toure MD on June 02, 2017 at 5:27 Board Certified Radiologist. This report was verified electronically.
[2017-06-02] MEDS: AMIODARONE 200 MG TAB PO SCH ×3 (05:34→21:36)
[2017-06-02] MEDS: PANTOPRAZOLE SOD 40 MG DELAYED RELEASE TAB PO SCH (05:34)
[2017-06-02 05:42] LABS: CALCIUM-PROTEIN CORRECTED 8.3 MG/DL (8.5-10.1); TOTAL PROTEIN 5.2 GM/DL (6.4-8.2)
[2017-06-02] MEDS: METOCLOPRAMIDE HCL 10 MG/2 ML VIAL IV PUSH SCH (08:33)
[2017-06-02] MEDS ORDERED: GLUCAGON 1 MG/ML VIAL OTHER PRN (09:30)
[2017-06-02] MEDS ORDERED: SOD PHOSPHATE/SOD BIPHOSPHATE (ADULT) ENEMA 133ML RECTAL PRN (09:30)
[2017-06-02] MEDS ORDERED: DEXTROSE 50% IN WATER 50 ML VIAL(D50) IV PUSH PRN (09:30)
[2017-06-02] MEDS ORDERED: PILL SPLITTER OTHER PRN (10:00)
[2017-06-02] MEDS: PRAVASTATIN SOD 40 MG TAB PO SCH (10:05)
[2017-06-02] MEDS: LORATADINE 10 MG TAB PO SCH (10:05)
[2017-06-02] MEDS: ASPIRIN 81 MG CHEW TAB PO SCH (10:05)
[2017-06-02] MEDS: SODIUM CHLORIDE 0.9% FLUSH 10 ML FLUSH IV FLUSH SCH ×2 (10:05→21:37)
[2017-06-02] MEDS: DOCUSATE SODIUM 100 MG CAP PO SCH ×2 (10:31→21:36)
[2017-06-02] MEDS: METOPROLOL TARTRATE 25 MG TAB PO SCH ×2 (10:31→21:35)
[2017-06-02] MEDS: INSULIN ASPART SUPPLEMENTAL SCALE SQ SCH ×4 (10:37→21:52)
--- NOTE | 2017-06-02 10:54 | PD.CAR.PN ---
CVT Progress Note Subjective/Hospital Course: 67-year-old patient of [facility] and Dr. Albert Finn who started having some chest tightness in January 2017 more noticeable with exertion. He normally walks five miles a day and then the it would up walking less than a mile and half. He had to stop periodically with mild chest tightness with associated shortness of breath, he underwent cardiac stress test which was positive , The ejection fraction on the stress test showed 32%. He also had a 2-D echocardiogram which showed some trace mitral regurgitation, trace tricuspid regurgitation. The patient underwent cardiac cath 05/18 Dr. Finn which showed an ejection fraction of 35% proximal a LAD 70% stenosis. The diagonal 90% stenosis, circ was 75%. The OM 90%. The ramus 90%. PAST MEDICAL HISTORY:diabetes mellitus type 2, Essential hypertension, ANDREAFSKI, Chronic kidney disease stage II GFR normally 60-89, Diabetic neuropathy, Hyperlipidemia, Chronic low back pain SURGERY: 06/01 CABG x 3 , L EVH crystalloid 1800cc, 750cc cell saver, urine 800cc extubated after surgery 06/02 weaned off insulin gtt, Up in chair , on nasal cannula pain controlled will start oral diabetic meds in am chest tube drained 190cc/ 12 hrs on ASA, statin , BB , amiodarone transfer to stepdown Objective: GENERAL: A&O x 3 SKIN: Warm and dry.prevena dressing intact, marilu wrap to left leg HEAD: Normocephalic. EYES: No scleral icterus. No injection or drainage. NECK: Supple, trachea midline. No JVD or lymphadenopathy. CARDIOVASCULAR: Regular rate and rhythm without murmurs, gallops, + rubs. RESPIRATORY: Breath sounds equal bilaterally. No accessory muscle use. chest tube to wall suction, no air leak GASTROINTESTINAL: Abdomen soft, non-tender, nondistended. MUSCULOSKELETAL: No cyanosis, or edema. BACK: Nontender without obvious deformity. No CVA tenderness. Vital Signs Date Time Temp Pulse Resp B/P (MAP) Pulse Ox O2 Delivery O2 Flow Rate FiO2 06/02/17 07:00 98.7 80 16 118/68 (85) 95 124/49 (74) 06/02/17 07:00 78 06/02/17 07:00 95 Nasal Cannula 3.00 06/02/17 03:50 14 06/02/17 03:00 98.7 83 14 110/69 (83) 97 115/48 (70) 06/02/17 03:00 81 06/01/17 23:00 98.9 85 14 107/66 (80) 97 114/49 (70) 06/01/17 23:00 85 06/01/17 20:22 97 Nasal Cannula 3.00 06/01/17 19:00 89 06/01/17 19:00 98.2 94 14 111/65 (80) 97 107/49 (68) 06/01/17 19:00 97 Nasal Cannula 3.00 06/01/17 15:35 94 Nasal Cannula 3.00 06/01/17 15:00 97.6 79 16 112/67 (82) 97 120/57 (78) 06/01/17 15:00 97 Nasal Cannula 3.00 06/01/17 15:00 77 06/01/17 14:05 98 Nasal Cannula 4.00 06/01/17 14:05 97 Nasal Cannula 4 06/01/17 13:30 82 06/01/17 13:19 96 40 06/01/17 13:00 98.6 89 11 125/79 (94) 98 134/61 (85) 06/01/17 13:00 40 06/01/17 12:51 95 40 Labs: Laboratory Tests Test 06/02/17 04:20 White Blood Count 17.3 TH/MM3 (4.0-11.0) Red Blood Count 3.67 MIL/MM3 (4.50-5.90) Hemoglobin 12.0 GM/DL (13.0-17.0) Hematocrit 35.3 % (39.0-51.0) Mean Corpuscular Volume 96.1 FL (80.0-100.0) Mean Corpuscular Hemoglobin 32.7 PG (27.0-34.0) Mean Corpuscular Hemoglobin Concent 34.0 % (32.0-36.0) Red Cell Distribution Width 13.4 % (11.6-17.2) Platelet Count 141 TH/MM3 (150-450) Mean Platelet Volume 10.7 FL (7.0-11.0) Blood Urea Nitrogen 14 MG/DL (7-18) Creatinine 0.83 MG/DL (0.60-1.30) Random Glucose 116 MG/DL (74-106) Total Protein 5.2 GM/DL (6.4-8.2) Calcium Level 7.3 MG/DL (8.5-10.1) Magnesium Level 2.2 MG/DL (1.5-2.5) Sodium Level 137 MEQ/L (136-145) Potassium Level 4.3 MEQ/L (3.5-5.1) Chloride Level 106 MEQ/L (98-107) Carbon Dioxide Level 21.3 MEQ/L (21.0-32.0) Anion Gap 10 MEQ/L (5-15) Estimat Glomerular Filtration Rate 92 ML/MIN (>89) Protein Corrected Calcium 8.3 MG/DL (8.5-10.1) Result Diagram: 06/02/1741906/02/17419 Telemetry: NSR (1) Coronary artery disease (2) S/P CABG (coronary artery bypass graft) Plan: on ASA, statin BB OOB ambulate wean 02 CM eval for HHC (3) Diabetes mellitus Plan: diabetic diet on high dose insulin sliding scale resume po meds in am (4) Chronic kidney disease Plan: avoid nephrotoxic meds (5) Hyperlipemia Plan: on statin (6) Hypertension Plan: resume marilu in am Problem Qualifiers (1) Chronic kidney disease: Qualified Codes: N18.2 - Chronic kidney disease, stage 2 (mild) Gloria Zhang Jun 02, 2017 10:54
[2017-06-02] MEDS: oxyCODONE/ACETAMINOPHEN 5 MG/325 MG TAB PO PRN (12:22)
[2017-06-02] MEDS: RESP: ALBUTEROL 2.5 MG/IPRATROPIUM 0.5 MG NEB (SCH) NEB ×2 (13:27→21:05)
[2017-06-02] MEDS: SENNOSIDES 8.6 MG TAB PO SCH (21:36)
[2017-06-03] VITALS (29 sets, daily range): BP systolic 113–136; BP diastolic 60–68; PULSE 79–110; RESP 17–22; TEMP 98.2–99.7; O2SAT 92–96
[2017-06-03] MEDS: oxyCODONE/ACETAMINOPHEN 5 MG/325 MG TAB PO PRN (00:26)
[2017-06-03] MEDS: INSULIN ASPART SUPPLEMENTAL SCALE SQ SCH ×5 (02:00→20:29)
[2017-06-03] MEDS: AMIODARONE 200 MG TAB PO SCH ×3 (06:02→22:16)
[2017-06-03] MEDS: PANTOPRAZOLE SOD 40 MG DELAYED RELEASE TAB PO SCH (06:02)
[2017-06-03 07:35] LABS: AUTOMATED NEUTROPHIL # 14.7 TH/MM3 (1.8-7.7); BASOPHIL % 0.1 % (0.0-2.0); EOSINOPHIL % 0.1 % (0.0-4.0); HEMATOCRIT 35.5 % (39.0-51.0); HEMOGLOBIN 12.2 GM/DL (13.0-17.0); LYMPH % 8.4 % (9.0-44.0); LYMPHOCYTE # 1.5 TH/MM3 (1.0-4.8); MEAN CELL VOLUME 97.6 FL (80.0-100.0); MEAN CORPUSCULAR HEMOGLOBIN 33.4 PG (27.0-34.0); MEAN CORPUSCULAR HGB CONC 34.3 % (32.0-36.0); MEAN PLATELET VOLUME 11.3 FL (7.0-11.0); MONO % 9.1 % (0.0-8.0); MONOCYTE # 1.6 TH/MM3 (0-0.9); NEUT % 82.3 % (16.0-70.0); PLATELET COUNT 160 TH/MM3 (150-450); RED BLOOD COUNT 3.64 MIL/MM3 (4.50-5.90); RED CELL DISTRIBUTION WIDTH 13.7 % (11.6-17.2); WHITE BLOOD COUNT 17.8 TH/MM3 (4.0-11.0)
[2017-06-03 07:53] LABS: BICARBONATE 23.1 MEQ/L (21.0-32.0); CALCIUM 7.8 MG/DL (8.5-10.1); CREATININE 0.89 MG/DL (0.60-1.30); MAGNESIUM 2.2 MG/DL (1.5-2.5)
[2017-06-03] MEDS: RESP: ALBUTEROL 2.5 MG/IPRATROPIUM 0.5 MG NEB (SCH) NEB ×3 (08:08→19:49)
[2017-06-03] MEDS: MAGNESIUM HYDROXIDE SUSP 30 ML CUP PO SCH (09:27)
[2017-06-03] MEDS: POLYETHYLENE GLYCOL 17 GM PKG PO SCH (09:29)
[2017-06-03] MEDS: MULTIVITAMINS/MINERALS THERAPEUTIC TAB PO SCH (09:30)
[2017-06-03] MEDS: PRAVASTATIN SOD 40 MG TAB PO SCH (09:30)
[2017-06-03] MEDS: DOCUSATE SODIUM 100 MG CAP PO SCH ×2 (09:31→20:26)
[2017-06-03] MEDS: LORATADINE 10 MG TAB PO SCH (09:31)
[2017-06-03] MEDS: ASPIRIN 81 MG CHEW TAB PO SCH (09:31)
[2017-06-03] MEDS: SODIUM CHLORIDE 0.9% FLUSH 10 ML FLUSH IV FLUSH SCH ×2 (09:32→20:28)
--- NOTE | 2017-06-03 11:38 | PD.CAR.PN ---
CVT Progress Note Subjective/Hospital Course: 67-year-old patient of [facility] and Dr. Albert Finn who started having some chest tightness in January 2017 more noticeable with exertion. He normally walks five miles a day and then the it would up walking less than a mile and half. He had to stop periodically with mild chest tightness with associated shortness of breath, he underwent cardiac stress test which was positive , The ejection fraction on the stress test showed 32%. He also had a 2-D echocardiogram which showed some trace mitral regurgitation, trace tricuspid regurgitation. The patient underwent cardiac cath 05/18 Dr. Finn which showed an ejection fraction of 35% proximal a LAD 70% stenosis. The diagonal 90% stenosis, circ was 75%. The OM 90%. The ramus 90%. PAST MEDICAL HISTORY:diabetes mellitus type 2, Essential hypertension, [place]TER[place], Chronic kidney disease stage II GFR normally 60-89, Diabetic neuropathy, Hyperlipidemia, Chronic low back pain SURGERY: 06/01 CABG x 3 , L EVH crystalloid 1800cc, 750cc cell saver, urine 800cc extubated after surgery 06/02 weaned off insulin gtt, Up in chair , on nasal cannula pain controlled will start oral diabetic meds in am chest tube drained 190cc/ 12 hrs on ASA, statin , BB , amiodarone transfer to stepdown 06/03 home diabetic meds resumed low grade temp, needs aggressive pulm toileting chest tube removed without difficulty weaning 02 continue ambulation had short run non sustained afib, BB increased, remains on amiodarone WBC 17K , f/u in am Objective: GENERAL: A&O x 3 SKIN: Warm and dry. prevena dressing to chest , left EVH site with some surrounding ecchymosis , some serous drainage from EVH website admin: Normocephalic. EYES: No scleral icterus. No injection or drainage. NECK: Supple, trachea midline. No JVD or lymphadenopathy. CARDIOVASCULAR: Regular rate and rhythm without murmurs, gallops, or rubs. RESPIRATORY: Breath sounds equal bilaterally. No accessory muscle use. diminished in bases , otherwise CTA , chest tube removed GASTROINTESTINAL: Abdomen soft, non-tender, nondistended. MUSCULOSKELETAL: No cyanosis, or edema. BACK: Nontender without obvious deformity. No CVA tenderness. Vital Signs Date Time Temp Pulse Resp B/P (MAP) Pulse Ox O2 Delivery O2 Flow Rate FiO2 1/12/18 11:01 94 Nasal Cannula 2.00 06/03/17 11:01 Nasal Cannula 1.00 06/03/17 11:01 99.7 101 19 116/62 (80) 94 06/03/17 11:00 110 06/03/17 10:00 102 06/03/17 09:00 98 06/03/17 08:16 93 Nasal Cannula 2.00 06/03/17 08:00 94 06/03/17 07:00 98.5 95 17 120/63 (82) 95 06/03/17 07:00 95 Nasal Cannula 2.00 06/03/17 07:00 93 06/03/17 06:00 92 06/03/17 05:00 92 06/03/17 04:00 98.4 81 18 113/63 (80) 96 06/03/17 04:00 84 06/03/17 03:36 96 Nasal Cannula 2.00 06/03/17 03:00 81 06/03/17 02:00 91 06/03/17 01:00 84 06/03/17 00:00 86 06/03/17 00:00 96 Nasal Cannula 2.00 06/03/17 00:00 98.2 87 18 115/60 (78) 96 06/02/17 23:00 92 06/02/17 22:00 84 06/02/17 21:03 95 Nasal Cannula 2.00 06/02/17 21:00 86 06/02/17 20:00 88 06/02/17 20:00 96 Nasal Cannula 2.00 06/02/17 20:00 98.5 90 16 130/64 (86) 96 06/02/17 18:45 96 Nasal Cannula 2.00 06/02/17 15:00 97.7 77 16 117/68 (84) 96 06/02/17 15:00 72 06/02/17 13:27 95 Nasal Cannula 2.00 Labs: Laboratory Tests Test 06/03/17 06:41 White Blood Count 17.8 TH/MM3 (4.0-11.0) Red Blood Count 3.64 MIL/MM3 (4.50-5.90) Hemoglobin 12.2 GM/DL (13.0-17.0) Hematocrit 35.5 % (39.0-51.0) Mean Corpuscular Volume 97.6 FL (80.0-100.0) Mean Corpuscular Hemoglobin 33.4 PG (27.0-34.0) Mean Corpuscular Hemoglobin Concent 34.3 % (32.0-36.0) Red Cell Distribution Width 13.7 % (11.6-17.2) Platelet Count 160 TH/MM3 (150-450) Mean Platelet Volume 11.3 FL (7.0-11.0) Neutrophils (%) (Auto) 82.3 % (16.0-70.0) Lymphocytes (%) (Auto) 8.4 % (9.0-44.0) Monocytes (%) (Auto) 9.1 % (0.0-8.0) Eosinophils (%) (Auto) 0.1 % (0.0-4.0) Basophils (%) (Auto) 0.1 % (0.0-2.0) Neutrophils # (Auto) 14.7 TH/MM3 (1.8-7.7) Lymphocytes # (Auto) 1.5 TH/MM3 (1.0-4.8) Monocytes # (Auto) 1.6 TH/MM3 (0-0.9) Eosinophils # (Auto) 0.0 TH/MM3 (0-0.4) Basophils # (Auto) 0.0 TH/MM3 (0-0.2) CBC Comment DIFF FINAL Differential Comment Blood Urea Nitrogen 13 MG/DL (7-18) Creatinine 0.89 MG/DL (0.60-1.30) Random Glucose 132 MG/DL (74-106) Calcium Level 7.8 MG/DL (8.5-10.1) Magnesium Level 2.2 MG/DL (1.5-2.5) Sodium Level 140 MEQ/L (136-145) Potassium Level 4.1 MEQ/L (3.5-5.1) Chloride Level 104 MEQ/L (98-107) Carbon Dioxide Level 23.1 MEQ/L (21.0-32.0) Anion Gap 13 MEQ/L (5-15) Estimat Glomerular Filtration Rate 85 ML/MIN (>89) Result Diagram: 06/03/17 0641 06/03/17 0641 Telemetry: NSR, short run afib resolved (1) Coronary artery disease (2) S/P CABG (coronary artery bypass graft) Plan: on ASA, statin BB , amiodarone OOB ambulate wean 02 CM eval for HHC (3) Diabetes mellitus Plan: diabetic diet on high dose insulin sliding scale po meds resumed (4) Chronic kidney disease Plan: avoid nephrotoxic meds creatinine stable (5) Hyperlipemia Plan: on statin (6) Hypertension Plan: hold on resuming marilu today BB increased Problem Qualifiers (1) Chronic kidney disease: Qualified Codes: N18.2 - Chronic kidney disease, stage 2 (mild) Gloria Zhang Jun 03, 2017 11:38
--- NOTE | 2017-06-03 11:55 | EKG ---
Date Performed: 06/02/2017 Time Performed: 06:07:16 PTAGE: 67 years EKG: Sinus rhythm Left axis deviation Possible anterior infarct - age undetermined Lateral T wave changes are nonspeci fic Low QRS voltages in precordial leads Anterolateral T-wave changes consistent with myocardial isch emia or infarction Clinical correlation will be important Abnormal ECG NO PREVIOUS TRACING DOCTOR: Tammie Shelley Interpretating Date/Time 06/03/2017 11:55:39
[2017-06-03] MEDS: METOPROLOL TARTRATE 25 MG TAB PO SCH ×2 (11:56→20:26)
[2017-06-03] MEDS: metFORMIN HCL 500 MG TAB PO SCH ×2 (11:56→17:57)
[2017-06-03] MEDS ORDERED: METO25TA3 PO (13:21)
[2017-06-03] MEDS ORDERED: AMIO200T PO (13:21)
[2017-06-03] MEDS ORDERED: DOCU1CAP39 PO (13:21)
[2017-06-03] MEDS ORDERED: OXYC1TAB63 PO (13:21)
--- NOTE | 2017-06-03 13:28 | HHI.DS ---
Discharge Summary Admission Date Jun 01, 2017 at 05:34 Discharge Date: Jun 03, 2017 Admitting Diagnosis chest pain , CAD (1) Coronary artery disease Diagnosis: Principal ICD Codes: I25.10 - Atherosclerotic heart disease of [place] coronary artery without angina pectoris (2) Hyperlipemia Diagnosis: Principal ICD Codes: E78.5 - Hyperlipidemia, unspecified Status: Chronic (3) Diabetes mellitus Diagnosis: Principal ICD Codes: E11.9 - Type 2 diabetes mellitus without complications Status: Chronic (4) Hypertension Diagnosis: Principal ICD Codes: I10 - Essential (primary) hypertension Status: Chronic (5) Chronic kidney disease Diagnosis: Principal ICD Codes: N18.9 - Chronic kidney disease, unspecified Status: Chronic (6) S/P CABG (coronary artery bypass graft) Diagnosis: Secondary ICD Codes: Z95.1 - Presence of aortocoronary bypass graft Procedures 06/01 CABG x 3 [place]> LAD SVG> OM1, OM3 Brief History 67-year-old patient of [facility] and Dr. Albert Finn who started having some chest tightness in January 2017 more noticeable with exertion. He normally walks five miles a day and then the it would up walking less than a mile and half. He had to stop periodically with mild chest tightness with associated shortness of breath, he underwent cardiac stress test which was positive , The ejection fraction on the stress test showed 32%. He also had a 2-D echocardiogram which showed some trace mitral regurgitation, trace tricuspid regurgitation. The patient underwent cardiac cath 05/18 Dr. Finn which showed an ejection fraction of 35% proximal a LAD 70% stenosis. The diagonal 90% stenosis, circ was 75%. The OM 90%. The ramus 90%. PAST MEDICAL HISTORY:diabetes mellitus type 2, Essential hypertension, [place], Chronic kidney disease stage II GFR normally 60-89, Diabetic neuropathy, Hyperlipidemia, Chronic low back pain CBC/BMP: 06/03/17 0641 06/03/17 0641 Significant Findings Laboratory Tests Test 06/02/17 04:20 06/03/17 06:41 White Blood Count 17.3 TH/MM3 (4.0-11.0) 17.8 TH/MM3 (4.0-11.0) Red Blood Count 3.67 MIL/MM3 (4.50-5.90) 3.64 MIL/MM3 (4.50-5.90) Hemoglobin 12.0 GM/DL (13.0-17.0) 12.2 GM/DL (13.0-17.0) Hematocrit 35.3 % (39.0-51.0) 35.5 % (39.0-51.0) Platelet Count 141 TH/MM3 (150-450) Random Glucose 116 MG/DL (74-106) 132 MG/DL (74-106) Total Protein 5.2 GM/DL (6.4-8.2) Calcium Level 7.3 MG/DL (8.5-10.1) 7.8 MG/DL (8.5-10.1) Protein Corrected Calcium 8.3 MG/DL (8.5-10.1) Mean Platelet Volume 11.3 FL (7.0-11.0) Neutrophils (%) (Auto) 82.3 % (16.0-70.0) Lymphocytes (%) (Auto) 8.4 % (9.0-44.0) Monocytes (%) (Auto) 9.1 % (0.0-8.0) Neutrophils # (Auto) 14.7 TH/MM3 (1.8-7.7) Monocytes # (Auto) 1.6 TH/MM3 (0-0.9) Estimat Glomerular Filtration Rate 85 ML/MIN (>89) Imaging Last Impressions Chest X-Ray 06/02/17 0500 Signed Impressions: Service Date/Time: May 04:44 - CONCLUSION: 1. Postsurgical changes as above. There is no evidence of pneumothorax. Albert Toure MD PE at Discharge GENERAL: A&O x 3 SKIN: Warm and dry. prevena dressing to chest , incision intact to left leg HEAD: Normocephalic. EYES: No scleral icterus. No injection or drainage. NECK: Supple, trachea midline. No JVD or lymphadenopathy. CARDIOVASCULAR: Regular rate and rhythm without murmurs, gallops, or rubs. RESPIRATORY: Breath sounds equal bilaterally. No accessory muscle use. GASTROINTESTINAL: Abdomen soft, non-tender, nondistended. MUSCULOSKELETAL: No cyanosis, or edema. BACK: Nontender without obvious deformity. No CVA tenderness. Hospital Course 06/02 weaned off insulin gtt, Up in chair , on nasal cannula pain controlled will start oral diabetic meds in am chest tube drained 190cc/ 12 hrs on ASA, statin , BB , amiodarone transfer to stepdown 06/03 home diabetic meds resumed low grade temp, needs aggressive pulm toileting chest tube removed without difficulty weaning 02 continue ambulation had short run non sustained afib, BB increased, remains on amiodarone WBC 17K , f/u in am, eval cxr in am then possible dc in am Pt Condition on Discharge: Good Discharge Disposition: Disch w/ Home Health Serv Discharge Instructions DIET: Follow Instructions for: Heart Healthy Diet, Diabetic Diet Activities you can perform: Full Weight Bearing, Shower Only-No Bath Activities to avoid: Strenuous Activity, Driving Additional Activity Instructio: no lifting > 8 lbs or gallon of milk New Orders: BASIC METABOLIC PROF - 2 Weeks CBC NO DIFF - 2 Weeks X-RAY CHEST PA & LAT - 2 Weeks New Medications: Amiodarone (Amiodarone) 200 Mg Tab 400 MG PO Q12HR for heart rhythm, #42 TAB 0 Refills 400mg bid x 3 days, then 200mg bid x 3 days, then 200mg daily Docusate Sodium (Dok) 100 Mg Cap 100 MG PO BID for Constipation, #60 CAP 0 Refills Metoprolol Tartrate (Metoprolol Tartrate) 25 Mg Tab 25 MG PO BID for Blood Pressure Management, #60 TAB 2 Refills Oxycodone HCl/Acetaminophen (Oxycodone-Acetaminophen 5-325) 5 Mg-325 Mg Tablet 1 TAB PO Q4H PRN for PAIN SCALE 1 TO 5, #40 TAB 0 Refills Continued Medications: Aspirin (Aspirin) 81 Mg Chew 81 MG CHEW DAILY, TAB 0 Refills Cholecalciferol (Vitamin D-1000) 1,000 Unit Tab 2000 UNITS PO DAILY for Nutritional Supplement, #1 BOTTLE 0 Refills Empagliflozin-Linagliptin (Glyxambi) 25-5 Mg Tab 1 TAB PO DAILY for Blood Sugar Management, #30 TAB 0 Refills Fexofenadine (Fexofenadine) 180 Mg Tab 180 MG PO DAILY for Allergy Management, #30 TAB 0 Refills Glipizide (Glipizide) 10 Mg Tab 15 MG PO BIDAC for Blood Sugar Management, #60 TAB 0 Refills Take 30 minutes before a meal Krill Oil (Krill Oil Bath-3 300 mg) 300 Mg-90 Mg-24 Mg-50 Mg-130 Mg Cap Lisinopril (Lisinopril) 10 Mg Tab 10 MG PO DAILY, #30 TAB 0 Refills Lovastatin (Lovastatin) 40 Mg Tab 40 MG PO DAILY for Cholesterol Management, #30 TAB 0 Refills Metformin (Metformin) 1,000 Mg Tab 1000 MG PO BIDPC for Blood Sugar Management, #60 TAB 0 Refills Discontinued Medications: Nitroglycerin SL (Nitrostat SL) 0.4 Mg Subl 0.4 MG SL DIRECTED PRN for CHEST PAIN, #100 TAB.SL 0 Refills 1 tablet under the tongue as needed for chest pain. Repeat every 5 minutes for a total of 3 DOSES or call 911 if NO relief. Gloria Zhang Jun 03, 2017 13:28
[2017-06-03] MEDS ORDERED: FUROSEMIDE 40 MG/4 ML VIAL IV PUSH ONE (13:30)
[2017-06-03] MEDS ORDERED: POTASSIUM CHLORIDE 20 MEQ CONTROLLED RELEASE TAB PO ONE (13:30)
[2017-06-03] MEDS: glipiZIDE 5 MG TAB PO SCH (17:56)
[2017-06-03] MEDS: SENNOSIDES 8.6 MG TAB PO SCH (20:26)
[2017-06-03] MEDS ORDERED: METOPROLOL TARTRATE 25 MG TAB PO SCH (21:00)
[2017-06-04] VITALS (12 sets, daily range): BP systolic 117–147; BP diastolic 60–72; PULSE 85–102; RESP 18–22; TEMP 97.8–98.7; O2SAT 88–95
--- NOTE | 2017-06-04 04:38 | RADRPT ---
EXAM DATE/TIME: 06/04/2017 03:54 [place] COMPARISON: CHEST SINGLE AP, June 02, 2017, 4:44. INDICATIONS : Shortness of breath, possible pulmonary disease. MEDICAL HISTORY : Hypertension. Diabetes mellitus type II. CAD SURGICAL HISTORY : CABG. ENCOUNTER: Subsequent ACUITY: 4 - 6 days PAIN SCORE: 0/10 LOCATION: Bilateral chest FINDINGS: The left chest tube has been removed. There are either basilar areas of atelectasis. There is no pneu mothorax. Heart size is within normal limits. Right-sided central line remains in place. No significa nt pleural effusions. CONCLUSION: Left chest tube removed. No pneumothorax. Bibasilar atelectasis. Héctor Plascencia MD on June 04, 2017 at 4:34 Board Certified Radiologist. This report was verified electronically.
[2017-06-04 04:43] LABS: AUTOMATED NEUTROPHIL # 12.9 TH/MM3 (1.8-7.7); BASOPHIL # 0.1 TH/MM3 (0-0.2); BASOPHIL % 0.4 % (0.0-2.0); EOSINOPHIL # 0.1 TH/MM3 (0-0.4); EOSINOPHIL % 0.4 % (0.0-4.0); HEMATOCRIT 34.4 % (39.0-51.0); HEMOGLOBIN 11.8 GM/DL (13.0-17.0); LYMPH % 11.2 % (9.0-44.0); LYMPHOCYTE # 1.8 TH/MM3 (1.0-4.8); MEAN CELL VOLUME 96.5 FL (80.0-100.0); MEAN CORPUSCULAR HEMOGLOBIN 33.1 PG (27.0-34.0); MEAN CORPUSCULAR HGB CONC 34.3 % (32.0-36.0); MEAN PLATELET VOLUME 10.6 FL (7.0-11.0); MONO % 8.5 % (0.0-8.0); MONOCYTE # 1.4 TH/MM3 (0-0.9); NEUT % 79.5 % (16.0-70.0); PLATELET COUNT 164 TH/MM3 (150-450); RED BLOOD COUNT 3.57 MIL/MM3 (4.50-5.90); RED CELL DISTRIBUTION WIDTH 13.6 % (11.6-17.2); WHITE BLOOD COUNT 16.2 TH/MM3 (4.0-11.0)
[2017-06-04 05:13] LABS: BICARBONATE 26.2 MEQ/L (21.0-32.0); CALCIUM 7.8 MG/DL (8.5-10.1); CREATININE 0.78 MG/DL (0.60-1.30); MAGNESIUM 2.6 MG/DL (1.5-2.5)
[2017-06-04] MEDS: AMIODARONE 200 MG TAB PO SCH (06:01)
[2017-06-04] MEDS: PANTOPRAZOLE SOD 40 MG DELAYED RELEASE TAB PO SCH (06:01)
[2017-06-04] MEDS: RESP: ALBUTEROL 2.5 MG/IPRATROPIUM 0.5 MG NEB (SCH) NEB (08:00)
[2017-06-04] MEDS: INSULIN ASPART SUPPLEMENTAL SCALE SQ SCH (08:55)
[2017-06-04] MEDS: MAGNESIUM HYDROXIDE SUSP 30 ML CUP PO SCH (08:58)
[2017-06-04] MEDS: glipiZIDE 5 MG TAB PO SCH (08:59)
[2017-06-04] MEDS: DOCUSATE SODIUM 100 MG CAP PO SCH (08:59)
[2017-06-04] MEDS: metFORMIN HCL 500 MG TAB PO SCH (08:59)
[2017-06-04] MEDS: LORATADINE 10 MG TAB PO SCH (08:59)
[2017-06-04] MEDS: ASPIRIN 81 MG CHEW TAB PO SCH (08:59)
[2017-06-04] MEDS: MULTIVITAMINS/MINERALS THERAPEUTIC TAB PO SCH (08:59)
[2017-06-04] MEDS: PRAVASTATIN SOD 40 MG TAB PO SCH (08:59)
[2017-06-04] MEDS: METOPROLOL TARTRATE 25 MG TAB PO SCH (09:00)
[2017-06-04] MEDS ORDERED: [UNRECOGNIZED DRUG - OTHER] PO SCH (09:00)
[2017-06-04] MEDS ORDERED: EMPAGLIFLOZIN LINAGLIPTIN PO SCH (09:00)
[2017-06-04] MEDS ORDERED: BISACODYL 10 MG SUPP RECTAL PRN (09:00)
[2017-06-04] MEDS: SODIUM CHLORIDE 0.9% FLUSH 10 ML FLUSH IV FLUSH SCH (09:00)
[2017-06-04] MEDS: POLYETHYLENE GLYCOL 17 GM PKG PO SCH (09:00)
== END 2017-06-04 11:20 | disposition home health service (06) | DRG 236 ==
LOC: HSDI 05:34 → HCVI 12:57 → HCPC 06-02 18:24
PROVIDERS: ADMIT Thoracic Surgery (Cardiothoracic Vascular Surgery); ATTEND Thoracic Surgery (Cardiothoracic Vascular Surgery)
PROC: 5A1221Z Performance of Cardiac Output, Continuous (ICD-10-PCS; 2017-06-01)
PROC: 02100Z9 Bypass Coronary Artery, One Artery from Left Internal Mammary, Open Approach (ICD-10-PCS; 2017-06-01)
PROC: 021209W Bypass Coronary Artery, Three Arteries from Aorta with Autologous Venous Tissue, Open Approach (ICD-10-PCS; principal; 2017-06-01 07:07)
PROC: 06BQ4ZZ Excision of Left Saphenous Vein, Percutaneous Endoscopic Approach (ICD-10-PCS; 2017-06-01 07:07)
DX: I25.119 Atherosclerotic heart disease of native coronary artery with unspecified angina pectoris (principal); E11.22 Type 2 diabetes mellitus with diabetic chronic kidney disease; E11.40 Type 2 diabetes mellitus with diabetic neuropathy, unspecified; N18.2 Chronic kidney disease, stage 2 (mild); I12.9 Hypertensive chronic kidney disease with stage 1 through stage 4 chronic kidney disease, or unspecified chronic kidney disease; I48.91 Unspecified atrial fibrillation; E78.5 Hyperlipidemia, unspecified
CPT/HCPCS: 71045; 76937; 80048; 82948; 83735; 84155; 85025; 85027; 86850; 86900; 86901; 86920; 93005; 94002; 94150; 94640; 94664; 94667; 94668; J0131; J0690; J1644; J1815; J1940; J2150; J2250; J2370; J2405; J2440; J2765; J2930; J3010; J3370; J3480; J7120; P9047